=== PATIENT | male | born 1985 | race Asian ===

== ENCOUNTER 2023-10-09 09:02 | Observation (INO) | payer MEDICAID ==
[~2023-10-09] VITALS: Ht 182.9 cm; Wt 81.7 kg
[2023-10-09] VITALS (12 sets, daily range): BP systolic 122–152; BP diastolic 76–92
[2023-10-09] MEDS ORDERED: INSULANI (09:17)
[2023-10-09 09:39] LABS: BASOPHILS ABSOLUTE AUTO 0.03 K/mm3 (0.00-0.23); BASOPHILS PERCENT AUTO 1 % (0-2); EOSINOPHILS ABSOLUTE AUTO 0.04 K/mm3 (0.00-0.68); EOSINOPHILS PERCENT AUTO 1 % (0-6); Hematocrit 41.9 % (37.0-53.0); Hemoglobin 14.3 g/dL (13.5-17.5); IMMATURE GRAN ABSOLUTE AUTO 0.04 K/mm3 (0.00-0.10); IMMATURE GRAN PERCENT AUTO 1 % (0-1); LYMPHOCYTES ABSOLUTE AUTO 1.22 K/mm3 (0.84-5.20); LYMPHOCYTES PERCENT AUTO 32 % (21-46); MONOCYTES ABSOLUTE AUTO 0.29 K/mm3 (0.16-1.47); MONOCYTES PERCENT AUTO 8 % (4-13); Mean Corpuscular HGB 30.1 pg (26.0-34.0); Mean Corpuscular HGB Conc 34.1 g/dL (31.5-36.5); Mean Corpuscular Volume 88 fL (80-100); Mean Platelet Volume 10.2 fL (9.1-12.4); NEUTROPHILS ABSOLUTE AUTO 2.24 K/mm3 (1.96-9.15); NEUTROPHILS PERCENT AUTO 58 % (41-73); Platelet Count 187 K/mm3 (150-400); RDW Coefficient Variation 13.1 % (11.7-14.2); RDW Standard Deviation 42.7 fL (35.1-46.3); Red Blood Cell Count 4.75 M/mm3 (4.30-5.90); White Blood Cell Count 3.86 K/mm3 (4.00-11.30)
[2023-10-09 09:44] LABS: Base Excess Venous -13.3 mmol/L; Bicarbonate Venous 15.4 mmol/L (24.0-30.0); PCO2 Venous 30.7 mmHg (38-42); pH Blood Venous 7.26 (7.34-7.37)
[2023-10-09] MEDS ORDERED: Ketorolac Tromethamine 15mg Vial IV ONE (09:55)
[2023-10-09] MEDS ORDERED: HYDROmorphone HCl/Pf 1MG SYR IV ONE (09:55)
[2023-10-09] MEDS ORDERED: Ondansetron HCl 2 MG / ML 2ML Vial IV ONE (09:55)
[2023-10-09] MEDS ORDERED: NS 1,000 ML IV SCH ×2 (09:55→10:25)
[2023-10-09 10:01] LABS: Albumin, Blood 3.6 g/dL (3.4-5.0); Albumin/Globulin Ratio 0.9 (0.8-1.8); Bilirubin, Total 0.3 mg/dL (0.1-1.0); Bun/Creatinine Ratio 17.8 (12.0-20.0); Calcium, Blood 8.5 mg/dL (8.5-10.1); Creatinine, Blood 0.68 mg/dL (0.60-1.20); Globulin, Blood 3.9 g/dL (2.2-4.0); Total Protein, Blood 7.5 g/dL (6.4-8.2)
[2023-10-09] MEDS ORDERED: Insulin Human Regular 100 UNIT in NS 100 ML IV SCH (10:25)
[2023-10-09] MEDS ORDERED: Ondansetron HCl 2 MG / ML 2ML Vial IV PRN (10:25)
[2023-10-09] MEDS ORDERED: Insulin Glargine-Yfgn 100 Unit/mL 3 ML SYR SC ONE ×3 (10:30→22:30)
[2023-10-09] MEDS ORDERED: Morphine Sulfate 10 MG/ML 1MLSYR IV ONE (11:10)
[2023-10-09 11:21] LABS: Source, Urine Clean Catch
[2023-10-09 11:30] LABS: Appearance, Urine Clear (Clear); Bilirubin, Urine Neg (Neg); Blood, Urine Neg (Neg); Glucose Qualitative, Urine 4+ (Neg); Ketones, Urine 3+ (Neg); Leukocyte Esterase, Urine 1+ (Neg); Nitrite, Urine Neg (Neg); Protein, Urine Neg (Neg); Urobilinogen, Urine NORM (Normal)
[2023-10-09 11:39] LABS: Color, Urine Pale Yellow (P-Yellow)
[2023-10-09 11:42] LABS: Red Blood Cells, Urine 0-2 /hpf (0-2)
[2023-10-09 11:43] LABS: Bacteria Many /hpf; Squamous Epithelial Cells Rare /hpf (Few); Yeast/Fungi Urine Rare /hpf
[2023-10-09] MEDS ORDERED: Haloperidol Lactate Inj. 5 MG/ML Injection IV ONE (12:20)
[2023-10-09] MEDS ORDERED: Dextrose 50% 50 ML Syringe IV PRN (13:00)
[2023-10-09] MEDS ORDERED: NS KCl 20mEq 1,000 ML IV SCH (13:15)
[2023-10-09 14:00] LABS: Bun/Creatinine Ratio 17.1 (12.0-20.0); Calcium, Blood 7.7 mg/dL (8.5-10.1); Creatinine, Blood 0.58 mg/dL (0.60-1.20); Potassium, Blood 3.8 mmol/L (3.5-5.5)
[2023-10-09] MEDS ORDERED: HYDROmorphone HCl/Pf 1MG SYR IV PRN (14:25)
[2023-10-09] MEDS ORDERED: D5W-1/2NS KCl 20mEq 1,000 ML IV SCH (14:30)
[2023-10-09] MEDS ORDERED: NOVOLOG FL100 UNIT/3 SC (16:02)
[2023-10-09] MEDS ORDERED: INSULANI SC (16:03)
[2023-10-09 17:59] LABS: Bun/Creatinine Ratio 13.2 (12.0-20.0); Calcium, Blood 7.6 mg/dL (8.5-10.1); Creatinine, Blood 0.61 mg/dL (0.60-1.20); Potassium, Blood 3.6 mmol/L (3.5-5.5)
--- NOTE | 2023-10-09 18:33 | NUR ---
SUMMARY PT ADMITTED TO ICU 3 THIS AFTERNOON FROM ER. PT A/O X4, AMBULATES SELF TO BED. PT HAS 9/10 ABD PAIN, DILAUDID IS HELPFUL. ON INSULIN GTT AND D5 1/2 NS WITH KCL. NO NAUSEA OR VOMITING. NO SIGN OF DISTRESS. USING CALL LIGHT APPROPRIATELY.
--- NOTE | 2023-10-09 20:08 | NUR ---
ASSUMPTION OF CARE/ASSESSMENT: ASSUMED CARE OF PT AT 1900; REPORT RECIEVED FROM VIVIANA CABRERA. PT ASLEEP IN BED BUT WAKES EASILY TO VERBAL STIMULI. PT A&O X 4 AND COOPERATIVE WITH CARE. PT ON RA WITH SPO2 100, LUNGS CLEAR THROUGHOUT AND DENIES SOB. SR ON MONITOR WITH HR 90'S, SBP 130'S AND DENIES CHEST PAIN/PRESSURE. PT ABD TENDER IN RLQ WITH 7/10 PAIN; PRN DILAUDID GIVEN EARLIER. PT NPO BUT TOLERATING SMALL SIPS OF WATER. INDEPENDENT WITH ADLS; USING URINAL AT BEDSIDE. INSULIN GTT @ 4 UNITS/HR, D5 1/2 NS W/ KCL @ 250 MLS/HR. BED LOWERED CALL LIGHT IN REACH.
[2023-10-09 21:50] LABS: Bun/Creatinine Ratio 13.2 (12.0-20.0); Calcium, Blood 7.7 mg/dL (8.5-10.1); Creatinine, Blood 0.53 mg/dL (0.60-1.20); Potassium, Blood 3.7 mmol/L (3.5-5.5)
[2023-10-10] VITALS (32 sets, daily range): BP systolic 117–154; BP diastolic 61–99
[2023-10-10 03:45] LABS: BASOPHILS ABSOLUTE AUTO 0.01 K/mm3 (0.00-0.23); BASOPHILS PERCENT AUTO 0 % (0-2); EOSINOPHILS ABSOLUTE AUTO 0.02 K/mm3 (0.00-0.68); EOSINOPHILS PERCENT AUTO 1 % (0-6); Hematocrit 34.2 % (37.0-53.0); IMMATURE GRAN ABSOLUTE AUTO 0.01 K/mm3 (0.00-0.10); IMMATURE GRAN PERCENT AUTO 0 % (0-1); LYMPHOCYTES ABSOLUTE AUTO 0.87 K/mm3 (0.84-5.20); LYMPHOCYTES PERCENT AUTO 23 % (21-46); MONOCYTES ABSOLUTE AUTO 0.47 K/mm3 (0.16-1.47); MONOCYTES PERCENT AUTO 12 % (4-13); Mean Corpuscular HGB 30.3 pg (26.0-34.0); Mean Corpuscular HGB Conc 35.1 g/dL (31.5-36.5); Mean Corpuscular Volume 86 fL (80-100); Mean Platelet Volume 9.6 fL (9.1-12.4); NEUTROPHILS ABSOLUTE AUTO 2.47 K/mm3 (1.96-9.15); NEUTROPHILS PERCENT AUTO 64 % (41-73); Platelet Count 149 K/mm3 (150-400); RDW Coefficient Variation 12.8 % (11.7-14.2); RDW Standard Deviation 40.4 fL (35.1-46.3); Red Blood Cell Count 3.96 M/mm3 (4.30-5.90); White Blood Cell Count 3.85 K/mm3 (4.00-11.30)
[2023-10-10 04:03] LABS: Bun/Creatinine Ratio 15.6 (12.0-20.0); Calcium, Blood 7.9 mg/dL (8.5-10.1); Creatinine, Blood 0.51 mg/dL (0.60-1.20); Potassium, Blood 3.5 mmol/L (3.5-5.5)
--- NOTE | 2023-10-10 05:24 | NUR ---
SHIFT SUMMARY: NO ACUTE CHANGES OVERNIGHT; PT VSS THROUGHOUT THE SHIFT. PT REMAINS A&O X 4, COOPERATIVE WITH CARE AND INDEPENDENT WITH ADL'S. PT TRANSISITIONED OVER TO SUBQ INSULIN AT 0200, BLOOD SUGARS REMAIN STABLE AT THIS TIME. PT HAD SNACK EARLY THIS MORNING AND TOLERATED WELL; NO C/O N/V AT THIS TIME. PT USING URINAL INDEPENDENTLY WITH GOOD OUTPUT. ABD PAIN CONTINUES AND PT BEING MEDICATED WITH PRN DILAUDID THROUGHOUT THE SHIFT. NO OTHER COMPLAINTS AT THIS TIME. BED LOWERED, CALL LIGHT IN REACH, WILL REPORT OFF TO ONCOMING RN.
--- NOTE | 2023-10-10 07:15 | NUR ---
ASSUMPTION OF CARE: ASSUMED CARE OF PATIENT. PATIENT RESTING QUIETLY IN BED. VITALS ARE STABLE WITH SBP IN THE 120S. HR IN THE 70S. PATIENT STABLE ON ROOM AIR WITH SPO2>96%. NO SIGNS OF DISCOMFORT AT THIS TIME. PATIENT SALINE LOCKED.
[2023-10-10] MEDS ORDERED: Insulin Human Lispro 100 Units/ML 3ML Syringe SC SCH ×2 (07:30)
[2023-10-10] MEDS ORDERED: HYDROcodone 5-APAP 325 TAB PO PRN (08:20)
[2023-10-10] MEDS ORDERED: Insulin Regular 100 UNIT/ML 10ML Vial SC ONE (11:40)
[2023-10-10] MEDS ORDERED: HUMULIN R100 UNIT/2 SC (12:22)
[2023-10-10] MEDS ORDERED: Norco 5-325 Ta1 EACH PO (12:27)
[2023-10-10] MEDS ORDERED: Insulin Regular 100 Unit/ML 1ML Dose IV ONE (13:00)
--- NOTE | 2023-10-10 13:18 | NUR ---
DISCHARGE SUMMARY: PATIENT DENIED NAUSEA THROUGHOUT THE MORNING. PATIENT REPORTED THAT HIS PAIN WAS CONTROLLED WITH THE PO PRN NORCO. PATIENT TOLERATING PO INTAKE WITHOUT NAUSEA OR INCREASE IN ABDOMINAL DISCOMFORT. PATIENT VOIDING WITHOUT DIFFICULTY. PATIENT STEADY ON HIS FEET. PATIENT INDEPENDENT IN THE ROOM AND THE SHOWER. PATIENT'S VITALS STABLE WITH SBP IN THE 120S AND HR IN THE 70S. PATIENT DENIED CHEST PAIN OR DISCOMFORT. PATIENT DENIED DIZZINESS AND FATIGUE. (LUNCH GLUCOSE COVERAGE: PATIENT REPORTED THAT HE USES REGULAR INSULIN AT HOME. DISCUSSED WITH DR. NAGY. TO COVER LUNCH'S BLOOD SUGAR, ONE TIME ORDER ENTERED WITH REGULAR INSULIN. )
== END 2023-10-10 13:04 | disposition home or self-care (01) ==
LOC: ER 09:02 → ICUE 09:03
PROVIDERS: Emergency Medicine; Student in an Organized Health Care Education/Training Program; ADMIT Family Medicine
DX: E10.10 Type 1 diabetes mellitus with ketoacidosis without coma (principal); K52.9 Noninfective gastroenteritis and colitis, unspecified; K20.90 Esophagitis, unspecified without bleeding; K76.0 Fatty (change of) liver, not elsewhere classified; Z79.4 Long term (current) use of insulin
CPT/HCPCS: 36415; 74177; 80048; 80053; 81001; 82010; 82803; 82947; 85025; 87086; 96361; 96365-59; 96375; 96376; 99285-25; A9270; G0378; J1170; J1630; J1815; J1885; J2270; J2405; J3480; J7030; Q9967